=== PATIENT | male | born 1980 | race Caucasian/White ===

== ENCOUNTER 2022-10-15 07:39 | Observation (INO) | payer BC, SELFPAY ==
[2022-10-15] VITALS (19 sets, daily range): BP systolic 94–126; BP diastolic 59–79; PULSE 60–72; RESP 16–20; TEMP 35.6–37; O2SAT 94–100; BMI 25.4; BMI 26.2
--- NOTE | 2022-10-15 07:56 | CRLHL7_ITS ---
For Patients: As a result of the Century Cures Act, medical imaging exams and procedure reports are released immediately into your electronic medical record. You may view this report before your referring provider. If you have questions, please contact your health care provider. INDICATION: Upper abdominal pain COMPARISON: None TECHNIQUE: CT examination of the abdomen and pelvis was performed without intravenous contrast. Thin section axial images were obtained from the lung bases through the pubic symphysis. Oral contrast was not administered. Please note that all CT scans at this facility use dose modulation, iterative reconstruction, and/or weight-based dosing when appropriate to reduce radiation dose to as low as reasonably achievable. FINDINGS: LUNG BASES: The lung bases as visualized appear normal.The heart size is normal at the lung bases. LIVER/BILIARY SYSTEM:The liver is normal in size and configuration given the lack of intravenous contrast. There is no visible focal mass and there is no intra- or extra hepatic biliary ductal dilatation.The gall bladder appears normal. ADRENALS: Normal non-contrast appearance KIDNEYS, URETERS and BLADDER:The kidneys appear normal given lack of intravenous contrast. No visible mass, calculus or hydronephrosis. The ureters and bladder as visualized appear normal. SPLEEN:Normal non-contrast appearance. PANCREAS: Normal non-contrast appearance. RETROPERITONEUM and MESENTERY: There is no mass, adenopathy or aortic aneurysm. GASTROINTESTINAL SYSTEM: Abnormally dilated loops of small bowel with air-fluid levels. This is diffuse but primarily involves jejunum and proximal ileum. This could be due to an incomplete obstruction, an ileus or an enteritis. No visible mass, hernia or evidence of closed loop obstruction PELVIS: No mass, adenopathy or free fluid. OSSEOUS STRUCTURES and ABDOMINAL WALL: There is an age-appropriate appearance of the osseous structures.No significant abdominal wall defect. OTHER: No free fluid or free air. IMPRESSION: Abnormally dilated loops of small bowel with air-fluid levels. This pattern may be due to an incomplete/early small bowel obstruction, enteritis or ileus. No visible mass. No hernia. No closed loop obstruction. Please note that all CT scans at this facility use dose modulation, iterative reconstruction, and/or weight-based dosing when appropriate to reduce radiation dose to as low as reasonably achievable. Dictated by Norman Swift MD @ 10/15/2022 8:43:41 AM (Electronically Signed)
--- NOTE | 2022-10-15 07:56 | CRLHL7_ITS ---
For Patients: As a result of the Century Cures Act, medical imaging exams and procedure reports are released immediately into your electronic medical record. You may view this report before your referring provider. If you have questions, please contact your health care provider. Indication: Pain Technique: Sonography of the abdomen was performed limited to the structures discussed below Comparison: A CT from earlier the same day Findings: The visualized aorta and visualized cava appear normal. The liver is normal in size and echogenicity without focal mass. No biliary ductal dilation The pancreas was poorly seen due to overlying bowel gas. The right kidney was unremarkable in size and appearance measuring 11.1 x 6.1 x 6.4 centimeters. The common duct measures 3 millimeters which is normal. Gallbladder wall thickness is top-normal at 3.9 millimeters. No pericholecystic fluid, sonographic Boothe`s sign, sludge or calculus. Impression: Normal examination Dictated by Norman Swift MD @ 10/15/2022 9:37:15 AM (Electronically Signed)
--- NOTE | 2022-10-15 07:58 | ED.GENADULT ---
HPI - General Adult General Time Seen by Provider: 07:58 Date Seen: 10/15/22 Chief complaint: Abdominal Pain Stated complaint: Severe abdominal pain Time Seen by Provider: 10/15/22 07:42 Source: patient Mode of arrival: ambulatory Limitations: physical limitation History of Present Illness HPI narrative: PATIENT IS A PLEASANT 42 YEAR WHITE MALE WHO PRESENTS WITH ONSET OF FOR THIS MORNING WITH EPIGASTRIC PAIN HAS BEEN QUITE SEVERE, HE HAS HAD DIARRHEA A FEW DAYS AGO, HIS CHILDREN HAS SIMILAR TYPE ILLNESS WITH DIARRHEA. HE HAD SUDDEN ONSET OF EPIGASTRIC DISCOMFORT HE HAS NOT HAD PAIN LIKE THIS IN THE PAST. NO CHEST PAIN BREATHING PROBLEM. HE HAS HAD NO BLOOD IN HIS STOOL OR DARK STOOL. He denies fever, nausea, he reports he is unable to find a comfortable position the pain is just above his umbilicus in his epigastrium. He is definitely tender to touch in that area by his report. Related Data Home Medications Medication Instructions Recorded Confirmed armodafinil 200 mg tablet 200 mg PO DAILY 10/15/22 10/15/22 buspirone 5 mg tablet 10 mg PO BID 10/15/22 10/15/22 cholecalciferol (vitamin D3) 125 125 mcg PO DAILY 10/15/22 10/15/22 mcg (5,000 unit) capsule lorazepam 1 mg tablet 1 mg PO Q6H PRN anxiety 10/15/22 10/15/22 multivitamin (Daily Multi-Vitamin 1 tab PO DAILY 10/15/22 10/15/22 tablet) Previous Rx's Medication Instructions Recorded oxycodone 5 mg tablet 5 mg PO Q6H PRN pain #5 tabs 10/15/22 Allergies Allergy/AdvReac Type Severity Reaction Status Date / Time No Known Drug Allergies Allergy Verified 10/15/22 07:45 Review of Systems Status of ROS: Reports: 6 or more systems reviewed and unremarkable except as noted in History and below [facility] Medical History (Updated 10/15/22 @ 12:38 by Tiffani Kumar MD) History of Xbirz-Dbdeitexd-Vtugq (WPW) syndrome ?Z86.79 - Personal history of other diseases of the circulatory system (ICD-10) DARRYN (obstructive sleep apnea) ?G47.33 - Obstructive sleep apnea (adult) (pediatric) (ICD-10) 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 (ICD-10) Surgical History (Updated 10/15/22 @ 12:01 by Tiffani Kumar MD) H/O parathyroidectomy ?E89.2 - Postprocedural hypoparathyroidism (ICD-10) Status post ablation of ventricular arrhythmia ?Z98.890 - Other specified postprocedural states (ICD-10) ?Z86.79 - Personal history of other diseases of the circulatory system (ICD-10) Social History (Updated 10/15/22 @ 12:02 by Tiffain Kumar MD) Smoking Status: Former smoker Do you use any of these nicotine containing products: None Nicotine containing products detail: quit in 2007 Second hand tobacco smoke exposure: No How often do you have a drink containing alcohol: 2-3 times a week How many standard drinks containing alcohol do you have on a typical day: 3 or 4 How often do you have six or more drinks on one occasion: Monthly AUDIT-C Alcohol total score: 6 Non-prescribed substance use: denies use Caffeine: Yes service: No Exam Narrative: Exam Narrative: Objective: Patient's vital signs look unremarkable General is mildly pale He is alert orient x3 He is in mild distress secondary to his stomach discomfort HEENT is unremarkable neck is supple chest clear heart rhythm regular without murmur bowel sounds normoactive mild guarding in the epigastrium and periumbilical area, moderate tenderness there as well. No real rebound No palpable masses Extremities are no edema neurologic nonfocal Const: Vital Signs, click to edit/add: Vital Signs - 24 hr 10/15/22 07:46 10/15/22 08:28 10/15/22 08:14 Temperature 96.1 F L Pulse Rate Pulse Rate [Pulse Oximeter] 62 62 Respiratory Rate 20 Blood Pressure Blood Pressure [Ri ght Upper Arm] 126/79 102/63 Pulse Oximetry 100 95 97 Oxygen Delivery Me thod Room Air Room Air 10/15/22 08:07 10/15/22 08:28 10/15/22 08:30 Temperature Pulse Rate 62 66 Pulse Rate [Pulse Oximeter] 62 Respiratory Rate 18 Blood Pressure Blood Pressure [Ri ght Upper Arm] 94/59 L Pulse Oximetry 99 97 Oxygen Delivery Me thod 10/15/22 08:32 10/15/22 08:45 10/15/22 09:16 Temperature Pulse Rate 64 60 Pulse Rate [Pulse Oximeter] Respiratory Rate Blood Pressure 99/66 Blood Pressure [Ri ght Upper Arm] Pulse Oximetry 97 100 Oxygen Delivery Me thod 10/15/22 09:30 10/15/22 09:32 10/15/22 09:45 Temperature Pulse Rate 66 68 66 Pulse Rate [Pulse Oximeter] Respiratory Rate Blood Pressure 109/71 Blood Pressure [Ri ght Upper Arm] Pulse Oximetry 99 97 95 Oxygen Delivery Me thod 10/15/22 10:00 10/15/22 10:02 10/15/22 10:15 Temperature Pulse Rate 64 67 69 Pulse Rate [Pulse Oximeter] Respiratory Rate Blood Pressure 105/65 Blood Pressure [Ri ght Upper Arm] Pulse Oximetry 97 94 96 Oxygen Delivery Me thod 10/15/22 10:30 10/15/22 10:32 Temperature Pulse Rate 72 70 Pulse Rate [Pulse Oximeter] Respiratory Rate Blood Pressure 112/69 Blood Pressure [Ri ght Upper Arm] Pulse Oximetry 95 95 Oxygen Delivery Me thod Course Vital Signs Vital signs: Initial Vital Signs Temperature 96.1 F L 10/15/22 07:46 Temperature Source Temporal Artery Scan 10/15/22 07:46 Pulse Rate 62 10/15/22 07:46 Pulse Rhythm Regular 10/15/22 07:46 Respiratory Rate 20 10/15/22 07:46 Blood Pressure 126/79 10/15/22 07:46 Blood Pressure Mean 94 10/15/22 07:46 Blood Pressure Position Sitting 10/15/22 07:46 Pulse Oximetry 100 10/15/22 07:46 Oxygen Delivery Method Room Air 10/15/22 07:46 Vital Signs Temperature 96.1 F L 10/15/22 07:46 Pulse Rate 62 10/15/22 07:46 Respiratory Rate 20 10/15/22 07:46 Blood Pressure 126/79 10/15/22 07:46 Pulse Oximetry 100 10/15/22 07:46 Oxygen Delivery Method Room Air 10/15/22 07:46 Temperature 97.5 F L 10/15/22 19:35 Pulse Rate 62 10/15/22 19:35 Respiratory Rate 16 10/15/22 19:35 Blood Pressure 118/77 10/15/22 19:35 Pulse Oximetry 98 10/15/22 19:35 Oxygen Delivery Method Room Air 10/15/22 19:35 Medical Decision Making MDM Narrative Medical decision making narrative: Patient is a 42 year white male with unremarkable past medical history who reports onset of significant epigastric pain at about 4 this morning, he has had some diarrheal type illness couple days prior. Rule out colitis rule out cholecystitis rule out intra-abdominal infection. Patient will get a CT scan, labs, IV fluid, IV pain medicine, IV antiemetic. Disposition pending findings above please see addendum thanks. Patient will also get Protonix as he has epigastric discomfort certainly could have gastritis or ulcer. Addendum: The patient has a CT scan without contrast that showed abnormally dilated loops of small bowel with air-fluid levels could be due to an incomplete early small-bowel obstruction versus enteritis or ileus the patient has no obstruction. The patient did have diarrhea the last few days I suspect this is more of a enteritis with mild ileus. He has improved markedly with pain medicine. His labs look reassuring thus far EKG was done that shows normal sinus rhythm early repolarization but no acute ST T wave changes. I suspect the patient could be observed in the ED for period of time he continues to do well we could discharge him home with some pain medication. Will review is additional labs return. Will also get an ultrasound for completeness. The ultrasound returned at 9:45 a.m. and was normal. The patient has gotten good pain relief. Discussed with Dr. Kumar our hospitalist and we will observe the patient in the ED for another couple of hours and see if he needs more medication, if so he will be admitted to the hospital, if not he we could try some oral pain medicine for home. The patient and his were comfortable plan Lab Data Labs: Lab Results 10/15/22 Range/Units 08:00 WBC 11.57 H (4.50-11.00) K/uL RBC 4.51 (4.30-5.90) m/uL Hgb 13.1 L (13.5-17.5) gm/dL Hct 38.2 (37.0-53.0) % MCV 85 (80-100) fL MCH 29 (26-34) pg MCHC 34 (32-36) gm/dL RDW Coeff of Alex 12.9 (11.5-15.5) % Plt Count 298 (140-440) K/uL Neut % (Auto) 78.0 H (42.0-72.0) % Lymph % (Auto) 15.3 L (20-44) % Mcclain % (Auto) 4.9 (0.0-11.0) % Eos % (Auto) 1.1 (0.0-7.0) % Baso % (Auto) 0.5 (0.0-3.0) % Neut # (Auto) 9.00 H (1.7-7.0) K/uL Lymph # (Auto) 1.80 (0.90-2.90) K/uL Mcclain # (Auto) 0.60 (0.00-0.90) K/UL Eos # (Auto) 0.10 (0.00-0.50) K/uL Baso # (Auto) 0.10 (0.00-0.30) K/uL Sodium 144 (135-149) mmol/L Potassium 3.4 L (3.6-5.1) mmol/L Chloride 107 (96-114) mmol/L Carbon Dioxide 26 (20-32) mmol/L BUN 15 (5-24) mg/dL Creatinine 0.7 (0.5-1.5) mg/dL Estimated Creat Clear 140.28 Estimated GFR 119 ml/min Glucose 131 H (60-115) mg/dL Lactate 2.3 H (0.5-1.9) mmol/L Calcium 8.9 (8.4-10.6) mg/dL Total Bilirubin 0.7 (0.1-1.5) mg/dL Direct Bilirubin 0.2 (0.0-0.5) mg/dL AST 35 (12-35) U/L ALT 31 (4-50) U/L Alkaline Phosphatase 58 (40-150) U/L Troponin I < 0.01 L (0.01-0.04) ng/mL C-Reactive Protein 0.6 (0.5-1.0) mg/dL Total Protein 8.0 (6.0-8.3) g/dL Albumin 4.7 (3.3-5.0) g/dL Amylase 60 (18-89) U/L Lipase 62 (23-300) U/L SARS-CoV-2 (PCR) Negative SARS-CoV-2 (Negative) Influenza Type A (PCR) Negative PCR FLU A (Negative) Influenza Type B (PCR) Negative PCR FLU B (Negative) RSV (PCR) Negative PCR RSV (Negative) Discharge Plan Discharge Clinical Impression: Abdominal pain Condition: Improved Activity Level: No Restrictions and Activity as Tolerated Discharge Diet: Low Fiber and Clear Liquid Diet Detail: Continue with clear liquids for tonight. Plan to advance to a soft diet (low residue/low fiber) tomorrow if tolerating clear liquid diet tonight. Over 2-5 days, gradually normalize your diet as tolerated.
[2022-10-15] MEDS: 0.9 % SODIUM CHLORIDE 1000 ml 1,000 ML 6000 ML IV (08:04)
[2022-10-15] MEDS: ONDANSETRON 2 MG/ML inj 4 MG IVP (08:04)
[2022-10-15] MEDS: HYDROmorphone 0.5 mg/0.5 ml inj 1 MG IVP ×2 (08:05→11:26)
[2022-10-15] MEDS: PANTOPRAZOLE SODIUM 40 MG INJ IVP (08:08)
[2022-10-15 08:12] LABS: Lactate* 2.3 mmol/L (0.5-1.9)
[2022-10-15 08:13] LABS: Basophils Percent Auto 0.5 % (0.0-3.0); Eosinophils Percent Auto 1.1 % (0.0-7.0); Hematocrit 38.2 % (37.0-53.0); Hemoglobin* 13.1 gm/dL (13.5-17.5); Immature Granulocytes Pct Auto 0.2 %; Lymphocytes Percent Auto 15.3 % (20-44); Mean Corpuscular HGB Conc 34 gm/dL (32-36); Mean Corpuscular Hemoglobin 29 pg (26-34); Mean Corpuscular Volume 85 fL (80-100); Monocytes Percent Auto 4.9 % (0.0-11.0); Platelet Count* 298 K/uL (140-440); RDW Coefficient of Variation % 12.9 % (11.5-15.5); Red Blood Count 4.51 m/uL (4.30-5.90); White Blood Count* 11.57 K/uL (4.50-11.00)
[2022-10-15 08:17] LABS: Slide Review Reflex No
[2022-10-15 08:28] LABS: Albumin* 4.7 g/dL (3.3-5.0); Chloride* 107 mmol/L (96-114); Sodium* 144 mmol/L (135-149)
[2022-10-15 08:29] LABS: Potassium* 3.4 mmol/L (3.6-5.1)
[2022-10-15 08:31] LABS: Amylase* 60 U/L (18-89); Bilirubin Direct* 0.2 mg/dL (0.0-0.5); Bilirubin Total* 0.7 mg/dL (0.1-1.5); Carbon Dioxide* 26 mmol/L (20-32); Creatinine* 0.7 mg/dL (0.5-1.5); Est. Creatinine Clearance* 140.28; Estimated Glomerular Filt Rate 119 ml/min
[2022-10-15 08:32] LABS: Alanine Aminotransferase* 31 U/L (4-50); Alkaline Phosphatase* 58 U/L (40-150); Aspartate Amino Transferase* 35 U/L (12-35); Blood Urea Nitrogen* 15 mg/dL (5-24); Calcium* 8.9 mg/dL (8.4-10.6); Glucose* 131 mg/dL (60-115)
[2022-10-15 08:34] LABS: C Reactive Protein* 0.6 mg/dL (0.5-1.0)
[2022-10-15 08:52] LABS: PCR FLU A Negative PCR FLU A (Negative); PCR FLU B Negative PCR FLU B (Negative); PCR RSV Negative PCR RSV (Negative)
[2022-10-15 08:55] LABS: SARS PCR* Negative SARS-CoV-2 (Negative)
[2022-10-15] MEDS: 0.9 % SODIUM CHLORIDE 1000 ml 1,000 ML 150 ML IV (09:19)
[2022-10-15] MEDS: HYDROmorphone 0.5 mg/0.5 ml inj IVP ×2 (09:25→09:26)
[2022-10-15 09:58] LABS: Troponin I* < 0.01 ng/mL (0.01-0.04)
--- NOTE | 2022-10-15 11:39 | ED.NURSE ---
report was given to liam engel. will go to 259.
--- NOTE | 2022-10-15 12:02 | PM.IMHP1 ---
Hospitalist- H&P: HPI History of Present Illness Date Seen: 10/15/22 Chief complaint: Severe abdominal pain Narrative: ADMISSION HISTORY AND PHYSICAL - HOSPITALIST Chief Complaint: abdominal cramping, sweats HPI: 42 y/o WM with hx of WPW requiring cardiac ablation, DARRYN, anxiety presents with abdominal cramping and pain. His entire family has had AGE. 2 young kids and his have had 2-3 days of diarrhea and vomiting. He did as well but today woke up with stabbing abdominal pain and bloating. no blood per rectum. no hx of abdominal surgeries, cancer or IBD. No fever, No travel. ER COURSE: arrived, assessed. labs showed mild elevation in lactate, low potassium dilaudid would settle pain but then would come back CODE STATUS: FULL CODE EMERGENCY CONTACT PLAN: I've updated the PFSH, medications and allergies in the [facility] tabs. INVESTIGATIONS: LABS/MICRO/ECG/IMAGING Afebrile 112/69, 105/65. Ordered orthostatics which were normal. Pulse 60s to 70s Respiratory rate unlabored unremarkable Pulse ox 95% on room air CBC reveals a mild leukocytosis of 11.5 Hemoglobin 13.1, platelets 298 Mild potassium 3.4, lactate 2.3 otherwise normal electrolytes and LFTs CT abdomen pelvis without contrast done in the ED this morning: Abnormally dilated loops of small bowel with air-fluid levels. This pattern may be due to an incomplete/early small bowel obstruction, enteritis or ileus. No visible mass. No hernia. No closed loop obstruction. Normal gallbladder/right upper quadrant ultrasound this morning REVIEW OF SYSTEMS: 12-point ROS completed with patient and negative unless otherwise stated in HPI or below. PHYSICAL EXAM: CONSTITUTIONAL: Conversive, good historian - a bit groggy. A/O. Knows setting and context. VITAL SIGNS: see record. HEENT: Normocephalic, atraumatic. PERRL, EOMI, conjunctivae pink, no scleral icterus. Ears and nose externally normal. Pharynx normal. NECK: No JVD. No carotid bruit, no thyromegaly, no adenopathy. CHEST: Clear to auscultation bilaterally HEART: S1 and S2 normal. No harsh murmurs. Edema MUSCULOSKELETAL: No gross joint deformity or swelling. ABDOMEN: soft. not obviously distended. distant bowel sounds. NEURO: Cranial nerves intact. Grossly intact. No asymmetric findings. SKIN: No rashes, petechiae, concerning changes PSYCHIATRIC: Euthymic. ADMIT TO MEDSURG: FLOOR CARE DVT: ambulation. 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 (ICD-10) Surgical History (Updated 10/15/22 @ 12:01 by Tiffani Kumar MD) H/O parathyroidectomy ?E89.2 - Postprocedural hypoparathyroidism (ICD-10) Status post ablation of ventricular arrhythmia ?Z98.890 - Other specified postprocedural states (ICD-10) ?Z86.79 - Personal history of other diseases of the circulatory system (ICD-10) Social History (Updated 10/15/22 @ 12:02 by Tiffani Kumar MD) Smoking Status: Former smoker Do you use any of these nicotine containing products: None Nicotine containing products detail: quit in 2007 Second hand tobacco smoke exposure: No How often do you have a drink containing alcohol: 2-3 times a week How many standard drinks containing alcohol do you have on a typical day: 3 or 4 How often do you have six or more drinks on one occasion: Monthly AUDIT-C Alcohol total score: 6 Non-prescribed substance use: denies use service: No Meds Home Medications and Allergies Home Medications Medication Instructions Recorded Confirmed Type armodafinil 200 mg tablet 200 mg PO DAILY 10/15/22 10/15/22 History buspirone 5 mg tablet 5 mg PO BID 10/15/22 10/15/22 History cholecalciferol (vitamin D3) 125 125 mcg PO DAILY 10/15/22 10/15/22 History mcg (5,000 unit) capsule lorazepam 1 mg tablet 1 mg PO Q6H PRN anxiety 10/15/22 10/15/22 History multivitamin (Daily Multi-Vitamin 1 tab PO DAILY 10/15/22 10/15/22 History tablet) Allergies Allergy/AdvReac Type Severity Reaction Status Date / Time No Known Drug Allergies Allergy Verified 10/15/22 07:45 Exam Const: Vital Signs, click to edit/add: Vital Signs - 24 hr 10/15/22 07:46 10/15/22 08:28 10/15/22 08:14 Temperature 96.1 F L Pulse Rate Pulse Rate [Pulse Oximeter] 62 62 Respiratory Rate 20 Blood Pressure Blood Pressure [Ri ght Upper Arm] 126/79 102/63 Pulse Oximetry 100 95 97 Oxygen Delivery Me thod Room Air Room Air 10/15/22 08:07 10/15/22 08:28 10/15/22 08:30 Temperature Pulse Rate 62 66 Pulse Rate [Pulse Oximeter] 62 Respiratory Rate 18 Blood Pressure Blood Pressure [Ri ght Upper Arm] 94/59 L Pulse Oximetry 99 97 Oxygen Delivery Me thod 10/15/22 08:32 10/15/22 08:45 10/15/22 09:16 Temperature Pulse Rate 64 60 Pulse Rate [Pulse Oximeter] Respiratory Rate Blood Pressure 99/66 Blood Pressure [Ri ght Upper Arm] Pulse Oximetry 97 100 Oxygen Delivery Me thod 10/15/22 09:30 10/15/22 09:32 10/15/22 09:45 Temperature Pulse Rate 66 68 66 Pulse Rate [Pulse Oximeter] Respiratory Rate Blood Pressure 109/71 Blood Pressure [Ri ght Upper Arm] Pulse Oximetry 99 97 95 Oxygen Delivery Me thod 10/15/22 10:00 10/15/22 10:02 10/15/22 10:15 Temperature Pulse Rate 64 67 69 Pulse Rate [Pulse Oximeter] Respiratory Rate Blood Pressure 105/65 Blood Pressure [Ri ght Upper Arm] Pulse Oximetry 97 94 96 Oxygen Delivery Me thod 10/15/22 10:30 10/15/22 10:32 Temperature Pulse Rate 72 70 Pulse Rate [Pulse Oximeter] Respiratory Rate Blood Pressure 112/69 Blood Pressure [Ri ght Upper Arm] Pulse Oximetry 95 95 Oxygen Delivery Me thod Hospitalist - H&P: Result Labs Labs: Short CBC 10/15/22 Range/Units 08:00 WBC 11.57 H (4.50-11.00) K/uL Hgb 13.1 L (13.5-17.5) gm/dL Hct 38.2 (37.0-53.0) % Plt Count 298 (140-440) K/uL BMP 10/15/22 08:00 Sodium 144 Potassium 3.4 L Chloride 107 Carbon Dioxide 26 BUN 15 Creatinine 0.7 Glucose 131 H Calcium 8.9 Cardiac Enzymes 10/15/22 Range/Units 08:00 Troponin I < 0.01 L (0.01-0.04) ng/mL Liver Function 10/15/22 Range/Units 08:00 Total Bilirubin 0.7 (0.1-1.5) mg/dL Direct Bilirubin 0.2 (0.0-0.5) mg/dL AST 35 (12-35) U/L ALT 31 (4-50) U/L Alkaline Phosphatase 58 (40-150) U/L Albumin 4.7 (3.3-5.0) g/dL Assessment and Plan Assessment and plan (1) Ileus: Problem comment: supportive care. no hx of cancer, abdominal surgeries, or IBD. fluids, antiemetics, anagesics. Status: Acute (2) Acute hypokalemia: Problem comment: normal saline infusing; will follow.mild. Status: Acute (3) Gastroenteritis: Problem comment: likely viral; most family members have been ill observe/supportive care as he has no evidence of SBO Status: Acute (4) History of Zrknu-Vlnfkgnyu-Lkleb (WPW) syndrome: Problem comment: s/p ablation Jun and October 2017 Status: Chronic (5) Anxiety: Problem comment: buspar; did not tolerate SSRI/SSNI ativan prn Status: Acute (6) DARRYN (obstructive sleep apnea): Problem comment: -last visit Jul 2022. Sleep Study Feb 2017 Obstructive sleep apnea Complex sleep apnea Plan - Discussed his download and his epworth results - Discussed treatment options: No changes in his CPAP - Complex sleep apnea - his heart rate and blood pressure have been stable stay on his armodafinil -200MG DAILY new prescription given; discussed using caffeine judiciously - Follow up every 6 months Alfred Whitt M.D. Status: Acute
[2022-10-15 12:26] LABS: Lipase* 62 U/L (23-300)
[2022-10-15] MEDS: OXYCODONE 5 MG TABLET PO ×3 (13:08→20:57)
[2022-10-15] MEDS: KETOROLAC 30 MG/ML inj IVP (14:08)
[2022-10-15] MEDS: ACETAMINOPHEN 325 MG TABLET PO (16:50)
[2022-10-15] MEDS: 0.9 % SODIUM CHLORIDE 1000 ml 1,000 ML 125 ML IV (17:25)
--- NOTE | 2022-10-15 19:43 | P.DS_ITS ---
DS: Providers Provider Time Seen by Provider: 19:30 Date Seen: 10/15/22 Date of admission: 10/15/22 11:39 Primary care physician: Marisol Mendez MD Admitting Clinician: Tiffani Kumar MD Attending Physician on discharge: Lakhwinder Morrison MD Date of Discharge: 10/15/22 DS: Diagnosis Discharge Diagnosis (1) Ileus: Status: Acute Problem details: supportive care. no hx of cancer, abdominal surgeries, or IBD. fluids, antiemetics, anagesics. (2) Gastroenteritis: Status: Acute Problem details: likely viral; most family members have been ill observe/supportive care as he has no evidence of SBO (3) Acute hypokalemia: Status: Acute Problem details: normal saline infusing; will follow.mild. (4) Anxiety: Status: Acute Problem details: buspar; did not tolerate SSRI/SSNI ativan prn (5) DARRYN (obstructive sleep apnea): Status: Acute Problem details: -last visit Jul 2022. Sleep Study Feb 2017 Obstructive sleep apnea Complex sleep apnea Plan - Discussed his download and his epworth results - Discussed treatment options: No changes in his CPAP - Complex sleep apnea - his heart rate and blood pressure have been stable stay on his armodafinil -200MG DAILY new prescription given; discussed using caffeine judiciously - Follow up every 6 months Alfred Whitt M.D. 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 He previously had 4 days of diarrhea, similar to his and children who also had acute gastroenteritis. No further episodes of diarrhea. On assessment in the hospital ED he was found to have an ileus. Efforts to control his pain were unsuccessful in the ED with IV opioids, IVF, and time. He was admitted for observation, IVF, analgesics. Was able to pass flatus in hospital and his pain was vastly improved. Was only requiring intermittent oral oxycodone in the hospital and tolerating clear liquids without nausea or vomiting. He tolerated walking in his hospital room and halls. Denies orthostasis or dizziness. He requested discharge to his home. We discussed staying in the hospital overnight, but he declined this. He understands that pharmacies in our community are closed now and that he can not fill out his oxycodone prescription until tomorrow. Status at Discharge Functional status at discharge: independent ambulation Overall status at discharge: patient is progressing back to baseline Time Spent with Patient Time attestation: Total time spent providing and/or coordinating discharge services: Time spent: Greater than 30 minutes Exam Narrative: Exam Narrative: Appears comfortable. No acute distress. Anxious. Alert, oriented to self, place, time, and situation. Mood and affect are congruent. Lungs are clear. No CVA tenderness. Heart tones are regular. Abdomen with active bowel sounds, soft. independent in transfer, station, and gait. No focal motor deficits. Extremities without edema. Const: Vital Signs, click to edit/add: Vital Signs - 24 hr 10/15/22 07:46 10/15/22 08:28 10/15/22 08:14 Temperature 96.1 F L Pulse Rate Pulse Rate [Apical ] Pulse Rate [Pulse Oximeter] 62 62 Respiratory Rate 20 Blood Pressure Blood Pressure [Ri ght Arm] Blood Pressure [Ri ght Upper Arm] 126/79 102/63 Pulse Oximetry 100 95 97 Oxygen Delivery Me thod Room Air Room Air 10/15/22 08:07 10/15/22 08:28 10/15/22 08:30 Temperature Pulse Rate 62 66 Pulse Rate [Apical ] Pulse Rate [Pulse Oximeter] 62 Respiratory Rate 18 Blood Pressure Blood Pressure [Ri ght Arm] Blood Pressure [Ri ght Upper Arm] 94/59 L Pulse Oximetry 99 97 Oxygen Delivery Me thod 10/15/22 08:32 10/15/22 08:45 10/15/22 09:16 Temperature Pulse Rate 64 60 Pulse Rate [Apical ] Pulse Rate [Pulse Oximeter] Respiratory Rate Blood Pressure 99/66 Blood Pressure [Ri ght Arm] Blood Pressure [Ri ght Upper Arm] Pulse Oximetry 97 100 Oxygen Delivery Me thod 10/15/22 09:30 10/15/22 09:32 10/15/22 09:45 Temperature Pulse Rate 66 68 66 Pulse Rate [Apical ] Pulse Rate [Pulse Oximeter] Respiratory Rate Blood Pressure 109/71 Blood Pressure [Ri ght Arm] Blood Pressure [Ri ght Upper Arm] Pulse Oximetry 99 97 95 Oxygen Delivery Me thod 10/15/22 10:00 04/22/23 10:02 10/15/22 10:15 Temperature Pulse Rate 64 67 69 Pulse Rate [Apical ] Pulse Rate [Pulse Oximeter] Respiratory Rate Blood Pressure 105/65 Blood Pressure [Ri ght Arm] Blood Pressure [Ri ght Upper Arm] Pulse Oximetry 97 94 96 Oxygen Delivery Me thod 10/15/22 10:30 10/15/22 10:32 10/15/22 12:07 Temperature 98.6 F Pulse Rate 72 70 Pulse Rate [Apical ] 67 Pulse Rate [Pulse Oximeter] Respiratory Rate 18 Blood Pressure 112/69 Blood Pressure [Ri ght Arm] 117/76 Blood Pressure [Ri ght Upper Arm] Pulse Oximetry 95 95 95 Oxygen Delivery Me thod Room Air 10/15/22 12:07 10/15/22 15:30 10/15/22 15:30 Temperature 98.1 F Pulse Rate Pulse Rate [Apical ] 71 71 Pulse Rate [Pulse Oximeter] Respiratory Rate 18 18 18 Blood Pressure Blood Pressure [Ri ght Arm] 121/78 Blood Pressure [Ri ght Upper Arm] Pulse Oximetry 95 94 Oxygen Delivery Me thod Room Air Room Air Documenting provider has reviewed patient's vital signs: yes DS: Data Data Completed and Pending Labs on day of discharge: Labs from last 24 hours 10/15/22 08:00 WBC 11.57 H RBC 4.51 Hgb 13.1 L Hct 38.2 MCV 85 MCH 29 MCHC 34 RDW Coeff of Alex 12.9 Plt Count 298 Neut % (Auto) 78.0 H Lymph % (Auto) 15.3 L Lake % (Auto) 4.9 Eos % (Auto) 1.1 Baso % (Auto) 0.5 Neut # (Auto) 9.00 H Lymph # (Auto) 1.80 Lake # (Auto) 0.60 Eos # (Auto) 0.10 Baso # (Auto) 0.10 Sodium 144 Potassium 3.4 L Chloride 107 Carbon Dioxide 26 BUN 15 Creatinine 0.7 Estimated Creat Clear 140.28 Estimated GFR 119 Glucose 131 H Lactate 2.3 H Calcium 8.9 Total Bilirubin 0.7 Direct Bilirubin 0.2 AST 35 ALT 31 Alkaline Phosphatase 58 Troponin I < 0.01 L C-Reactive Protein 0.6 Total Protein 8.0 Albumin 4.7 Amylase 60 Lipase 62 SARS-CoV-2 (PCR) Negative SARS-CoV-2 Influenza Type A (PCR) Negative PCR FLU A Influenza Type B (PCR) Negative PCR FLU B RSV (PCR) Negative PCR RSV Imaging CT scan - abdomen: Attestation: I have reviewed the pertinent imaging results. Radiologist's impression: Abnormally dilated loops of small bowel with air-fluid levels. This pattern may be due to an incomplete/early small bowel obstruction, enteritis or ileus. No visible mass. No hernia. No closed loop obstruction. US - abdomen: Radiologist's impression: Normal examination Discharge Plan Discharge Disposition: Home, Self-Care Date of Admission: 10/15/22 11:39 Attending Provider on Discharge: Lakhwinder Morrison Primary Care Provider: Marisol Mendez Condition: Improved Anticipated Discharge Date/Time: 10/15/22 20:15 Discharge Medications: New oxycodone 5 mg tablet 5 mg PO Q6H PRN (Reason: pain) Qty: 5 0RF Continued buspirone 5 mg tablet 10 mg PO BID lorazepam 1 mg tablet 1 mg PO Q6H PRN (Reason: anxiety) armodafinil 200 mg tablet 200 mg PO DAILY cholecalciferol (vitamin D3) 125 mcg (5,000 unit) capsule 125 mcg PO DAILY multivitamin [Daily Multi-Vitamin] Tablet 1 tab PO DAILY Discharge Orders: Discharge Order (Routine); Ordered 10/15/22 Ordered By: Lakhwinder Morrison Patient Education: Dehydration (GEN), Low Fiber Diet (GEN), Gastroenteritis (GEN) Additional Instructions: 1. We anticipate that your condition will improve over the next 1-3 days. 2. Return to the hospital or clinic if your condition worsening or not improving. 3. Call your primary care physician or the hospital if you have questions or concerns. Activity Level: No Restrictions and Activity as Tolerated Discharge Diet: Low Fiber and Clear Liquid Diet Detail: Continue with clear liquids for tonight. Plan to advance to a soft diet (low residue/low fiber) tomorrow if tolerating clear liquid diet tonight. Over 2-5 days, gradually normalize your diet as tolerated. Follow Up Appointments: Marisol Mendez MD [Primary Care Provider] - Forms: [facility] Info Instructions
--- NOTE | 2022-10-15 20:47 | PC.NURSE ---
Updated patient on prescription being changed to [facility] as [facility] is closed tonight and on sundays (voicemail left at [facility] to cancel transmitted rx), pt agreeable/friendly, denies pain/discomfort currently while eating applesauce and interacting with family.
--- NOTE | 2022-10-15 23:31 | PC.NURSE ---
Pt alert and oriented x3, afebrile, active bowel sounds, voiding, and tolerating a clear liquid diet. Pt reported 3/10 pain with moment in abdomen, pain managed with PRN oxycodone. Verbal and written education given to pt and spouse, verbalized understanding. IV was taken out during discharge, catheter intact. Pt walked out at discharge accompanied by family.
== END 2022-10-15 21:10 | disposition home or self-care (01) ==
LOC: ED 08:36 → MEDSURG 11:41
PROVIDERS: Admitting Provider Family Medicine; Emergency Provider Family Medicine; PCP Family Medicine; Visit Provider Family Medicine
DX: K56.7 Ileus, unspecified (principal); K52.9 Noninfective gastroenteritis and colitis, unspecified; E87.6 Hypokalemia; R74.02 Elevation of levels of lactic acid dehydrogenase [LDH]; D72.829 Elevated white blood cell count, unspecified; F41.9 Anxiety disorder, unspecified; G47.33 Obstructive sleep apnea (adult) (pediatric); I45.6 Pre-excitation syndrome; R14.0 Abdominal distension (gaseous); Z86.79 Personal history of other diseases of the circulatory system; E89.2 Postprocedural hypoparathyroidism; Z98.890 Other specified postprocedural states; Z87.891 Personal history of nicotine dependence
CPT/HCPCS: 36415; 74176; 76705; 80048; 80076; 82150; 83605; 83690; 84484; 85025; 86140; 87631; 93005; 94761; 96361; 96374; 96375; 99285; A9270; C9113; G0378; J1170; J1885; J2405; J7030

== ENCOUNTER 2023-04-03 14:30 | Outpatient (RCR) | payer BC, SELFPAY | END 2023-07-03 12:32 | disposition home or self-care (01) | PROVIDERS: PCP Family Medicine; Visit Provider Family Medicine | DX: M76.892 Other specified enthesopathies of left lower limb, excluding foot (principal); G57.02 Lesion of sciatic nerve, left lower limb; M79.18 Myalgia, other site; M25.562 Pain in left knee; M62.81 Muscle weakness (generalized); Z51.89 Encounter for other specified aftercare | CPT/HCPCS: 97110; 97140; 97161 ==

== ENCOUNTER 2024-06-01 15:43 | Emergency (ER) | payer BC, SELFPAY ==
[2024-06-01 15:53] VITALS: BP 124/73; PULSE 95; RESP 20; TEMP 37.6; O2SAT 98; BMI 23.8
--- NOTE | 2024-06-01 16:07 | CRLHL7_ITS ---
For Patients: As a result of the Cures Act, medical imaging exams and procedure reports are released immediately into your electronic medical record. You may view this report before your referring provider. If you have questions, please contact your health care provider. INDICATION: Cough. TECHNIQUE: Chest 2 views. COMPARISON: None. FINDINGS: Cardiovascular and mediastinum: Heart size and vasculature are normal in caliber and appearance. Lungs and pleural spaces: Trace peribronchial thickening. No sign of infiltrate or mass. No sign of pleural effusion. No pneumothorax. Bones and soft tissues: No significant findings. IMPRESSION: Trace peribronchial thickening, likely reactive airway disease or viral pneumonia in the appropriate clinical setting. No focal consolidations Dictated by Pancho Navarro MD @ 06/01/2024 4:37:43 PM (Electronically Signed)
--- NOTE | 2024-06-01 16:08 | ED_ITS ---
HPI - General Adult General Chief complaint: Headache/Migraine Stated complaint: Fatigue, headache, nausea Time Seen by Provider: 06/01/24 15:48 History of Present Illness HPI narrative: Patient is a 44-year-old gentleman comes in today with approximately 24 hours of fevers chills body aches fatigue nasal congestion and nonproductive cough. He has taken some ibuprofen at home but is not any better. He has not measured a fever. He has no dysuria abdominal pain he has had some mild nausea but no vomiting. No rashes no stiff neck. Related Data Home Medications ?Medication ?Instructions ?Recorded ?Confirmed armodafinil 200 mg tablet 200 mg PO DAILY 10/15/22 06/01/24 Previous Rx's ?Medication ?Instructions ?Recorded nirmatrelvir 300 mg (150 mg See Rx Instructions PO .COMPLEX 06/01/24 x2)-ritonavir 100 mg tablet,dose #30 ea pack (Paxlovid) Allergies Allergy/AdvReac Type Severity Reaction Status Date / Time No Known Drug Allergies Allergy Verified 10/15/22 07:45 Review of Systems Status of ROS: Reports: 10 or more systems reviewed and unremarkable except as noted in History and below [facility] Medical History 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 (ICD-10) History of Jkcye-Xwctfepxy-Ziyza (WPW) syndrome ?Z86.79 - Personal history of other diseases of the circulatory system (ICD- 10) DARRYN (obstructive sleep apnea) ?G47.33 - Obstructive sleep apnea (adult) (pediatric) (ICD-10) Surgical History H/O parathyroidectomy ?E89.2 - Postprocedural hypoparathyroidism (ICD-10) Status post ablation of ventricular arrhythmia ?Z98.890 - Other specified postprocedural states (ICD-10) ?Z86.79 - Personal history of other diseases of the circulatory system (ICD- 10) Social History Smoking Status: Former smoker Do you use any of these nicotine containing products: None Nicotine containing products detail: quit in 2007 Second hand tobacco smoke exposure: No How often do you have a drink containing alcohol: 2-3 times a week How many standard drinks containing alcohol do you have on a typical day: 3 or 4 How often do you have six or more drinks on one occasion: Monthly AUDIT-C Alcohol total score: 6 Non-prescribed substance use: denies use Caffeine: Yes service: No Exam Narrative: Exam Narrative: EXAM GENERAL: Patient appears comfortable and well. EYES: No scleral icterus. ENT: Tympanic membranes and oropharynx normal. THYROID: no thyroid nodules or thyromegaly. LYMPH: No supraclavicular or cervical lymphadenopathy. SKIN: Visible skin seen during exam normal or with benign process only. EXT: No dependent lower extremity pedal edema. HEART: Regular rate and rhythm with no murmurs, rubs, or gallops. LUNGS: Clear to auscultation bilaterally with no crackles or wheezes. ABD: Soft, non tender, non distended. PSYCH: Good eye contact, speech is not pressured. Const: Vital Signs, click to edit/add: Vital Signs - 24 hr 06/01/24 15:53 Temperature 99.6 F Pulse Rate [Pulse Oximeter] 95 Respiratory Rate 20 Blood Pressure [Ri ght Upper Arm] 124/73 Pulse Oximetry 98 Oxygen Delivery Me thod Room Air Course Course ED Course: Patient seen and examined. COVID swab chest x-ray pending. Vital Signs Vital signs: Initial Vital Signs Temperature 99.6 F 06/01/24 15:53 Temperature Source Temporal Artery Scan 06/01/24 15:53 Pulse Rate 95 06/01/24 15:53 Respiratory Rate 20 06/01/24 15:53 Blood Pressure 124/73 06/01/24 15:53 Blood Pressure Mean 90 06/01/24 15:53 Blood Pressure Position Supine 06/01/24 15:53 Pulse Oximetry 98 06/01/24 15:53 Oxygen Delivery Method Room Air 06/01/24 15:53 Vital Signs Temperature 99.6 F 06/01/24 15:53 Pulse Rate 95 06/01/24 15:53 Respiratory Rate 20 06/01/24 15:53 Blood Pressure 124/73 06/01/24 15:53 Pulse Oximetry 98 06/01/24 15:53 Oxygen Delivery Method Room Air 06/01/24 15:53 Temperature 99.6 F 06/01/24 15:53 Pulse Rate 95 06/01/24 15:53 Respiratory Rate 20 06/01/24 15:53 Blood Pressure 124/73 06/01/24 15:53 Pulse Oximetry 98 06/01/24 15:53 Oxygen Delivery Method Room Air 06/01/24 15:53 Medications Administered Medications: Discontinued Medications Generic Name Dose Route Start Last Admin Trade Name Fredi PRN Reason Stop Dose Admin Acetaminophen 1,000 mg 06/01/24 16:08 06/01/24 16:30 Acetaminophen 500 Mg Tablet PO 06/01/24 16:09 1,000 mg ONCE ONE Administration Medical Decision Making MDM Narrative Medical decision making narrative: Patient presents with fevers chills body aches and fatigue. COVID-19 is positive. I did given Tylenol here in the emergency room. I recommended plain rest plenty fluids Tylenol Motrin PACs lobe it as directed and follow-up with primary care with a 5 day isolation in 5 days additionally with a mask. Follow- up with his primary physician as needed. Lab Data Labs: Lab Results 06/01/24 Range/Units 16:10 SARS-CoV-2 (PCR) POSITIVE SARS-CoV-2 A (Negative) Influenza Type A (PCR) Negative PCR FLU A (Negative) Influenza Type B (PCR) Negative PCR FLU B (Negative) RSV (PCR) Negative PCR RSV (Negative) Discharge Plan Discharge Clinical Impression: COVID-19 Patient Disposition: Home, Self-Care Condition: Stable Instructions: COVID-19 (Coronavirus Disease 2019) (ED) Additional Instructions: Tylenol Motrin Rest Fluids Isolation and masking as directed Paxlovid as prescribed Activity Level: No Restrictions Discharge Diet: Regular Prescriptions: New Paxlovid 300 mg (150 mg x 2)-100 mg tablets,dose pack See Rx Instructions .ROUTE .COMPLEX Qty: 30 0RF Rx Instructions: take TWO 150 mg tablets of nirmatrelvir with ONE 100 mg tablet of ritonavir twice daily for 5 days No Action armodafinil 200 mg tablet 200 mg PO DAILY Follow Up/Referrals: Marisol Mendez MD [Primary Care Provider] - Stand Alone Forms: [facility] Info Instructions
[2024-06-01] MEDS: ACETAMINOPHEN 500 MG TABLET 1000 MG PO (16:30)
[2024-06-01 16:54] LABS: PCR FLU A Negative PCR FLU A (Negative); PCR FLU B Negative PCR FLU B (Negative); PCR RSV Negative PCR RSV (Negative); SARS PCR* POSITIVE SARS-CoV-2 (Negative)
== END 2024-06-01 17:34 | disposition home or self-care (01) ==
PROVIDERS: Emergency Provider Internal Medicine; PCP Family Medicine
DX: U07.1 COVID-19 (principal)
CPT/HCPCS: 71046; 87631; 99283; 99284; A9270